=== PATIENT | female | born 1990 | race Caucasian/White ===

== ENCOUNTER 2022-10-08 10:46 | Outpatient (CLI) | payer OTHER | END 2022-10-08 10:59 | disposition home or self-care (01) | LOC: RAD 10:46 | PROVIDERS: ATTEND Internal Medicine | DX: Z30.46 Encounter for surveillance of implantable subdermal contraceptive (principal) ==

== ENCOUNTER → 2022-10-13 | Outpatient (CLI) | payer OTHER | END | disposition home or self-care (01) | LOC: MAMO-SONO 08:37 → EDBD 08:37 | PROVIDERS: ATTEND Student in an Organized Health Care Education/Training Program | DX: E03.9 Hypothyroidism, unspecified (principal); I10 Essential (primary) hypertension; M54.50 Low back pain, unspecified; Z01.810 Encounter for preprocedural cardiovascular examination; Z30.46 Encounter for surveillance of implantable subdermal contraceptive ==

== ENCOUNTER 2022-11-11 06:00 | Day surgery (SDC) | payer OTHER | END 2022-11-11 10:40 | disposition home or self-care (01) | LOC: CIR.AMB 06:00 | PROVIDERS: ATTEND Surgery | DX: S40.852A Superficial foreign body of left upper arm, initial encounter (principal); Z91.013 Allergy to seafood; F17.210 Nicotine dependence, cigarettes, uncomplicated ==